=== PATIENT | female | born 1975 | race African-American/Black ===

== ENCOUNTER → 2016-08-14 | Outpatient (CLI) | payer BC ==
--- NOTE | 2016-08-15 09:51 | RAD ---
DATE: 08/14/2016 EXAM: DIGITAL SCREEN BILAT W/CAD HISTORY: Routine screening COMPARISON: 06/11/2015, 06/07/2015, 05/11/2014 This study was interpreted with the benefit of Computerized Aided Detection (CAD). The breast parenchyma is extremely dense, which reduces the sensitivity of mammography. Breast parenchyma level density D. FINDINGS: The fibroglandular densities in the breasts are extremely dense in a heterogeneous pattern. No new or enlarging breast densities are seen. No suspicious microcalcifications are delineated. IMPRESSION: 1. Extremely dense breasts in a heterogeneous pattern. 2. No specific evidence of malignancy. BI-RADS CATEGORY: 2 BENIGN FINDING(S) RECOMMENDED FOLLOW-UP: 12M 12 MONTH FOLLOW-UP PQRS compliance statement: Patient information was entered into a reminder system with a target due date for the next mammogram. Mammography is a sensitive method for finding small breast cancers, but it does not detect them all and is not a substitute for careful clinical examination. A negative mammogram does not negate a clinically suspicious finding and should not result in delay in biopsying a clinically suspicious abnormality. "Our facility is accredited by the [employer] Mammography [employer]."
== END | disposition home or self-care (01) ==
LOC: MAMMO 08:55
PROVIDERS: ATTEND Obstetrics & Gynecology
DX: Z12.31 Encounter for screening mammogram for malignant neoplasm of breast (principal)
CPT/HCPCS: G0202; 77067

== ENCOUNTER → 2019-06-30 | Outpatient (CLI) | payer BC ==
--- NOTE | 2019-07-02 09:41 | RAD ---
Bilateral digital screening mammograms and tomosynthesis Reason for examination: Routine screening. Comparison is made to previous study dated August 14, 2016 and priors Routine CC and MLO digital views obtained. Interpretation was made with the benefit of CAD. The skin and nipples show no abnormalities. No abnormal lymph nodes are seen. The breast parenchyma is scattered fibroglandular elements. (Breast density: Category B.) There are no suspicious masses, suspicious calcifications or architectural distortions. Left upper outer breast 7 cm nipple demonstrates a 4 mm oval circumscribed mass, possibly a lymph node, not apparent on the prior study. At the left lower breast 8 cm from nipple there is an oval circumscribed 8 mm mass not apparent on prior study. Impression: Circumscribed subcentimeter masses of the left upper outer breast and left lower breast as described above. Further assessment with left breast ultrasound is advised. BI-RADS Category 0: Incomplete examination. "Our facility is accredited by the [employer] Mammography [employer]." This patient's information has been entered into a reminder system for the patient to be notified with the results of her examination and a target date for the next mammogram. Electronically signed by: Diego Ramírez MD (07/02/2019 9:38 AM) [id number]
== END ==
LOC: MAMMO 07:54
PROVIDERS: ATTEND Obstetrics & Gynecology
DX: Z12.31 Encounter for screening mammogram for malignant neoplasm of breast (principal); N63.21 Unspecified lump in the left breast, upper outer quadrant
CPT/HCPCS: 77063; 77067

== ENCOUNTER → 2019-07-11 | Outpatient (CLI) | payer BC ==
--- NOTE | 2019-07-11 11:20 | RAD ---
Examination: BREAST LEFT History: Abnormal mammogram Comparison/Correlation: 08/14/2016 and 06/30/2019 mammographic exams Findings: Limited ultrasound exam of the left breast was performed. At the 2:00 region 7 cm from the nipple, there is a to 0.21 cm tall by 0.24 cm x 0.28 cm well-circumscribed structure. It is relatively anechoic likely represents a cyst. No significant posterior acoustic enhancement identified although this may be due to the very small size of this structure. At the 6:00 region 6 cm from the nipple, there is a 0.38 cm x 0.28 cm x 0.19 cm structure which has the appearance of a lymph node. No abnormal enhancement. Normal left axillary lymph nodes are identified. Impression: BI-RADS Category 3-probably benign. Six-month follow-up left mammogram with michi and possibly ultrasound to assess stability recommended. Electronically signed by: Fernando Ivory MD (07/11/2019 11:18 AM) [id number]
== END | disposition home or self-care (01) ==
LOC: US 10:36
PROVIDERS: ATTEND Nurse Practitioner Women's Health
DX: R92.8 Other abnormal and inconclusive findings on diagnostic imaging of breast (principal)
CPT/HCPCS: 76641

== ENCOUNTER → 2020-01-15 | Outpatient (CLI) | payer BC ==
--- NOTE | 2020-01-15 17:02 | RAD ---
Examination: 1. Left digital diagnostic mammogram. 2. Limited left breast ultrasound. INDICATION: 44-year-old woman presenting for short-term follow-up probably benign left breast sonographic findings identified on screening mammography recall. COMPARISON: Bilateral mammograms of 06/07/2015, 08/14/2016 and 06/30/2019. Limited left breast ultrasound of 07/11/2019. TECHNIQUE: CC and MLO views of the left breast were obtained with 2-D and 3-D technique and reviewed with computer-aided detection. A spot compression view of the left breast in the CC projection was also obtained. Targeted ultrasound of the upper outer quadrant left breast in the inferior left breast was also performed. FINDINGS: Heterogeneously dense breast parenchyma. The nodule at the 6:00 position left breast shows no significant mammographic interval change. It is best seen on the tomographic image series was a well circumscribed isodense oval 7 mm mass at the approximate 6:00 position 6 cm from the nipple. On spot compression, it is obscured by overlying dense breast tissue on retrospective review, may have been present but obscured by overlying dense fibronodular tissue. Prior mammograms also show presence of waxing and waning pattern of nodularity. The nodule at the upper outer breast reported to be 7 cm from the nipple is unchanged, measuring 3 mm in diameter. Targeted ultrasound of the left breast identified around the millimeter mass at the left 2:00 position 7 cm from the nipple that correlates with the mammographic finding. It is well-circumscribed and shows low-level internal echoes on this examination with no internal vascularity. The mammographic nodule at the 6:00 position was not as well seen on ultrasound at this visit. Sonographic survey of the right axilla showed a few axillary lymph nodes with some showing mild eccentric cortical thickening up to 3 mm with preservation of the fatty hilum and oval-shaped circumscribed margins. Patient denies any palpable abnormality in the axilla or in the breast. IMPRESSION: Probably benign reactive lymph nodes in the left axilla and mammographic nodules in the left breast, favored to represent benign cysts. Recommend 6 month follow-up left targeted breast and axillary ultrasound, to be performed at the time she is due for her next screening exam. Discussed with patient. BI-RADS Category 3 Probably benign findings Six-month follow-up bilateral diagnostic mammogram and targeted left breast ultrasound recommended. Patient entered into a reminder system with targeted due date for next mammogram. Electronically signed by: Sisi Stokes MD (01/15/2020 4:59 PM) [id number]
== END ==
LOC: MAMMO 09:33
PROVIDERS: ATTEND Nurse Practitioner Women's Health
DX: N63.21 Unspecified lump in the left breast, upper outer quadrant (principal); N63.23 Unspecified lump in the left breast, lower outer quadrant
CPT/HCPCS: 76641; 77065; G0279; 77061

== ENCOUNTER → 2021-05-18 | Outpatient (CLI) | payer BC ==
--- NOTE | 2021-05-18 10:04 | RAD ---
EXAMINATION: US BREAST LT, MG DIGITAL BILAT DIAGNOSTIC MAMMO WITH MARK ANTHONY CLINICAL HISTORY: Follow up left breast masses TECHNIQUE: Digital craniocaudal and mediolateral oblique views of the bilateral breasts obtained with 3-D tomosynthesis. Targeted left breast ultrasound also performed. COMPARISON: Mammograms 01/15/2020, 06/30/2019, 08/14/2016; left breast ultrasound 01/15/2020 and 07/11/2019 BREAST COMPOSITION: The breasts are heterogeneously dense, which may obscure small masses. FINDINGS: BILATERAL DIAGNOSTIC MAMMOGRAM: Small circumscribed masses at 2:00 and 6:00 positions in the left breast, essentially unchanged from the prior exams being considered benign given duration of stability. No evidence of suspicious mass, calcifications, or areas of architectural distortion bilaterally. LEFT BREAST ULTRASOUND: At 2:00 position 7 cm from the nipple, there is a 3 mm circumscribed mass essentially unchanged from the prior study. No discrete abnormality is again noted in the 6:00 position. Several prominent axill gunnar lymph nodes again seen with cortical thickening measuring up to 4 mm in partial effacement of the fatty hilum in a few of the nodes. IMPRESSION: Suspicious left axillary lymphadenopathy, recommend ultrasound-guided biopsy/fine-needle aspiration f or further evaluation. BI-RADS ASSESSMENT: Category 4: Suspicious for Malignancy RECOMMENDATION: Ultrasound-guided biopsy/fine-needle aspiration left axillary lymph node(s). PQRS compliance statement - Patient information was entered into a reminder system with a target due date for the next mammogram. "Our facility is accredited by the [employer] Mammography [employer]." Electronically signed by: Michael Lancaster DO (05/18/2021 10:01 AM) [id number]
== END ==
LOC: MAMMO 08:31
PROVIDERS: ATTEND Internal Medicine
DX: N63.21 Unspecified lump in the left breast, upper outer quadrant (principal); N64.89 Other specified disorders of breast
CPT/HCPCS: 76641; 77066; G0279; 77062